=== PATIENT | male | born 1950 | race Caucasian/White ===

== ENCOUNTER → 2016-07-28 | Outpatient (CLI) | payer MEDICARE ==
[~2016-07-28] MED LIST: LEVO75TA PO; NEBI5TAB2 PO; OMEG1CAP6 PO; TADA5TAB PO
== END | disposition home or self-care (01) ==
LOC: LAB 11:48
PROVIDERS: ATTEND Nurse Practitioner Occupational Health
DX: Z12.5 Encounter for screening for malignant neoplasm of prostate (principal); N40.0 Benign prostatic hyperplasia without lower urinary tract symptoms
CPT/HCPCS: G0103

== ENCOUNTER → 2016-07-30 | Outpatient (CLI) | payer MEDICARE ==
--- NOTE | 2016-07-30 15:17 | RAD ---
Indication benign prostatic hypertrophy. Grayscale imaging targeted to the kidneys was performed. The right kidney measures 10.5 x 5.4 x 5.5 cm. No hydronephrosis or solid mass is seen. The left kidney measures 11.8 x 5.6 x 5.5 cm and also appears unremarkable showing no evidence of hydronephrosis or mass. The urinary bladder was incompletely distended but grossly normal. The estimated post void residual urinary bladder volume was 6 cc IMPRESSION: Normal kidneys
== END | disposition home or self-care (01) ==
LOC: US 10:47
PROVIDERS: ATTEND Nurse Practitioner Occupational Health
DX: N40.0 Benign prostatic hyperplasia without lower urinary tract symptoms (principal)
CPT/HCPCS: 76770

== ENCOUNTER 2016-09-13 15:09 | Emergency (ER) | payer MEDICARE ==
[2016-09-13 15:15] VITALS: BP 140/96
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
[2016-09-13] MEDS ORDERED: cefTRIAXone IM 1 GM VIAL IM ONE (16:10)
[2016-09-13] MEDS ORDERED: DIPHTH,PERTUSS(ACELL),TET TOX 0.5 ML DISP.SYRIN. VAX IM ONE (16:10)
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
--- NOTE | 2016-09-14 08:37 | RAD ---
Left ring finger, 3 views, 09/13/2016: History: Injury, fall, pain There is a fracture of the proximal end of the middle phalanx. It is slightly comminuted with anterior and posterior components. Fracture lines involve the PIP joint. There is no significant displacement at the fracture site. No other bony abnormality is detected. IMPRESSION: Nondisplaced fracture of the proximal end of the middle phalanx of the ring finger. Left wrist, 3 views, 09/13/2016: There is deformity of the scaphoid bone compatible with a nonunited fracture. The distal fragment is somewhat rotated. The bony margins are sclerotic suggesting that this is an old injury. There are mild degenerative changes at the radiocarpal articulation. No other fracture or dislocation is identified. IMPRESSION: Scaphoid bone fracture as described above, most likely old. Clinical correlation is suggested.
== END 2016-09-13 18:35 | disposition home or self-care (01) ==
LOC: ER 15:09
DX: S06.0X0A Concussion without loss of consciousness, initial encounter (principal); S62.645A Nondisplaced fracture of proximal phalanx of left ring finger, initial encounter for closed fracture; S61.211A Laceration without foreign body of left index finger without damage to nail, initial encounter; E03.9 Hypothyroidism, unspecified; F03.90 Unspecified dementia, unspecified severity, without behavioral disturbance, psychotic disturbance, mood disturbance, and anxiety; I10 Essential (primary) hypertension; Z88.0 Allergy status to penicillin; V29.9XXA Motorcycle rider (driver) (passenger) injured in unspecified traffic accident, initial encounter; Y93.55 Activity, bike riding; Y99.8 Other external cause status; Y92.828 Other wilderness area as the place of occurrence of the external cause
CPT/HCPCS: 12002; 29130; 70450; 70486; 72125; 73110; 73140; 90471; 90715; 96372; 99284; J0696

== ENCOUNTER → 2017-03-29 | Outpatient (CLI) | payer MEDICARE ==
--- NOTE | 2017-03-29 10:56 | RAD ---
CT HEAD WITHOUT CONTRAST03/29/2017 12:30 PM Indication: Memory changes Comparison: CT head without contrast September 13, 2016 Procedure: Multidetector CT imaging of the head was performed without the administration of contrast. Findings: No evidence of acute intracranial hemorrhage is identified. No evidence of subacute territorial infarct is identified. Note that CT is limited for evaluation of acute ischemia. If there is clinical concern for acute ischemia, MRI offers more sensitive evaluation. Less prominent extra-axial fluid is seen in the frontal regions bilaterally in today's exam. Traversing veins are noted similar appearance to prior exam. No new abnormal extra-axial fluid collection is identified. No acute mass effect or midline shift is seen. The ventricles and basilar cisterns have a stable configuration. No acute osseous abnormalities are identified. Impression: No evidence of acute intracranial abnormality is identified PQRS Compliance Statement: One or more of the following individualized dose reduction techniques were utilized for this examination: 1. Automated exposure control 2. Adjustment of the mA and/or kV according to patient size 3. Use of iterative reconstruction technique
== END | disposition home or self-care (01) ==
LOC: CT 09:58
PROVIDERS: ATTEND Family Medicine
DX: R41.3 Other amnesia (principal); F12.10 Cannabis abuse, uncomplicated; F17.200 Nicotine dependence, unspecified, uncomplicated
CPT/HCPCS: 70450

== ENCOUNTER → 2018-03-17 | Outpatient (CLI) | payer MEDICARE ==
--- NOTE | 2018-03-17 16:04 | RAD ---
EXAM: Left knee, 2 views HISTORY: Pain. COMPARISON: None. FINDINGS: 2 views of the left knee are obtained. There is no fracture, dislocation or subluxation. There is mild medial and patellofemoral spurring. There is no joint effusion. There is a tiny bone island within the lateral femoral condyle. IMPRESSION: 1. Mild medial and patellofemoral compartment osteoarthritis. 2. No acute osseous finding. Electronically signed by: Shayy Salazar MD (03/17/2018 4:00 PM) [id number]
== END | disposition home or self-care (01) ==
LOC: RAD 15:43
PROVIDERS: ATTEND Family Medicine
DX: M17.12 Unilateral primary osteoarthritis, left knee (principal); M76.892 Other specified enthesopathies of left lower limb, excluding foot
CPT/HCPCS: 73560

== ENCOUNTER → 2018-04-14 | Outpatient (CLI) | payer MEDICARE ==
--- NOTE | 2018-04-14 15:09 | RAD ---
CT HEAD INDICATION: HEADACHE WITH CONFUSION COMPARISON: 03/29/2017 Exposure: One or more of the following individualized dose reduction techniques were utilized for this examination: 1. Automated exposure control 2. Adjustment of the mA and/or kV according to patient size 3. Use of iterative reconstruction technique TECHNIQUE: 5 mm contiguous axial images were obtained from the skull base to the vertex in both bone and soft tissue algorithm. FINDINGS: Mild bilateral periventricular white matter hypodensities likely chronic small vessel ischemic disease. No evidence of acute intracranial hemorrhage. No extra-axial fluid collections. No mass effect or midline shift. Ventricular size is appropriate. Basal cisterns are patent. No fractures identified.Cornejo-white differentiation is preserved.Globes and orbits are within normal limits. Paranasal sinuses and mastoid air cells are clear. IMPRESSION: No acute intracranial findings. Electronically signed by: Jewel Beth MD (04/14/2018 3:04 PM) [id number]
== END | disposition home or self-care (01) ==
LOC: CT 14:35
PROVIDERS: ATTEND Psychiatry & Neurology Neurology
DX: R41.3 Other amnesia (principal); R51 Headache; R41.0 Disorientation, unspecified
CPT/HCPCS: 36415; 70450; 82306; 82607; 82746; 84436; 84443; 86592